=== PATIENT | male | born 1980 | race Caucasian/White ===

== ENCOUNTER 2018-02-28 02:51 | Emergency (ER) | payer OTHER ==
[2018-02-28 03:12] VITALS: BP 126/79; PULSE 100; RESP 16; TEMP 98.6
--- NOTE | 2018-02-28 03:23 | ED ---
Overdose HPI - General Chief Complaint: Overdose Stated Complaint: Overdose Time Seen by Provider: 02/28/18 02:54 Source: patient, EMS Mode of arrival: EMS Limitations: no limitations - History of Present Illness Initial Comments: Is a 37-year-old man who presents to the hospital by ambulance after accidental heroin overdose. The patient states that he had been released from longterm one to 2 weeks ago, and he went to use heroin tonight, and did not realize that he had a lower tolerance than previously. The patient was with a friend who called 911. EMS personnel reported that the patient had a very low respiratory rate, and that they gave oxygen by bag valve mask and then Narcan after which the patient became alert and responsive. The patient denies any complaints here. MD Complaint: accidental overdose -: minutes(s) How Overdose Was Discovered: family/friend present at time Context: Accidental Overdose: wanted to get high - Related Data Previous Rx's Medication Instructions Recorded Ibuprofen [Motrin] 800 mg PO Q8HR PRN #30 tab 07/13/14 Ondansetron Odt [Zofran ODT] 4 mg PO Q8HR PRN #10 tab 07/13/14 Cephalexin [Keflex] 250 mg PO Q6HR 10 Days day 07/20/14 Allergies Allergy/AdvReac Type Severity Reaction Status Date / Time No Known Allergies Allergy Verified 02/28/18 03:06 Review of Systems ROS Statement: Those systems with pertinent positive or pertinent negative responses have been documented in the HPI. ROS Other: All systems not noted in ROS Statement are negative. Constitutional: Denies: fever, chills, weakness Respiratory: Denies: cough, dyspnea Cardiovascular: Denies: chest pain, palpitations, orthopnea Gastrointestinal: Denies: abdominal pain, vomiting, diarrhea Musculoskeletal: Denies: back pain Neurological: Denies: headache, weakness, numbness Psychiatric: Denies: depression, suicidal thoughts Past Medical History Past Medical History: No Reported History History of Any Multi-Drug Resistant Organisms: None Reported Past Surgical History: No Surgical Hx Reported Past Psychological History: No Psychological Hx Reported Smoking Status: Current every day smoker Past Alcohol Use History: None Reported Past Drug Use History: None Reported General Exam Limitations: no limitations General appearance: alert, in no apparent distress Head exam: Present: atraumatic, normocephalic Eye exam: Present: normal appearance, PERRL, EOMI. Absent: scleral icterus, conjunctival injection Respiratory exam: Present: normal lung sounds bilaterally. Absent: respiratory distress, wheezes, rales, rhonchi, stridor Cardiovascular Exam: Present: regular rate, normal rhythm, normal heart sounds. Absent: systolic murmur, diastolic murmur, rubs, gallop GI/Abdominal exam: Present: soft. Absent: tenderness, guarding, rebound, mass Extremities exam: Present: normal inspection, normal capillary refill. Absent: pedal edema, calf tenderness Back exam: Present: normal inspection. Absent: CVA tenderness (R), CVA tenderness (L) Neurological exam: Present: alert Skin exam: Present: warm, dry, intact, normal color. Absent: rash Course Vital Signs 02/28/18 02:59 Temperature 98.6 F Pulse Rate 100 Respiratory 16 Rate Blood Pressure 126/79 O2 Sat by Pulse 92 L Oximetry Medical Decision Making - Medical Decision Making I did have a prolonged discussion with the patient regarding the risk of Narcan wearing off before the heroin that the patient had used. He understands that there is risk of loss consciousness, respiratory arrest, . The patient still does want to sign himself out, but he states that he will be with a friend who can watch over him. Patient will return if there is any difficulty or if he finds himself unsupervised tonight. Discussed cessation. - EKG Data -: EKG Interpreted by Me EKG shows normal: sinus rhythm, axis (Normal), intervals (Normal), QRS complexes (Incomplete right bundle branch block), ST-T waves (Normal) Rate: tachycardia (Rate approximately 108 bpm) Disposition Clinical Impression: Accidental heroin overdose Disposition: Left Against Medical Advice Condition: Fair Instructions: Opioid Overdose (ED) Is patient prescribed a controlled substance at d/c from ED?: No Referrals: None,Stated [Primary Care Provider] - 1-2 days
== END 2018-02-28 03:39 | disposition left against medical advice (07) ==
LOC: EC 02:51
DX: T40.1X1A Poisoning by heroin, accidental (unintentional), initial encounter (principal); F17.200 Nicotine dependence, unspecified, uncomplicated; Z53.29 Procedure and treatment not carried out because of patient's decision for other reasons
CPT/HCPCS: 93005; 99284

== ENCOUNTER 2018-06-14 16:49 | Emergency (ER) | payer OTHER ==
[2018-06-14 17:02] VITALS: TEMP 98.9
--- NOTE | 2018-06-14 17:17 | ED ---
Overdose HPI - General Chief Complaint: Overdose Stated Complaint: Overdose Time Seen by Provider: 06/14/18 17:11 Source: patient, EMS, RN notes reviewed Mode of arrival: EMS Limitations: no limitations - History of Present Illness Initial Comments: 37-year-old male presents emergency Department via EMS for heroin overdose. Patient was found to be in a vehicle an intersection. Drowsy, had pulse and was breathing. Patient was not given any Narcan by EMS. Patient has mild awake and alert at this time. Patient had no physical complaints. Patient states he does inject. Patient is a long-time heroin user. He states he has overdose in the past. - Related Data Home Medications Medication Instructions Recorded Confirmed No Known Home Medications 06/14/18 06/14/18 Allergies Allergy/AdvReac Type Severity Reaction Status Date / Time No Known Allergies Allergy Verified 06/14/18 17:10 Review of Systems ROS Statement: Those systems with pertinent positive or pertinent negative responses have been documented in the HPI. ROS Other: All systems not noted in ROS Statement are negative. Past Medical History Past Medical History: No Reported History History of Any Multi-Drug Resistant Organisms: None Reported Past Surgical History: No Surgical Hx Reported Past Psychological History: No Psychological Hx Reported Smoking Status: Current every day smoker Past Alcohol Use History: Rare Past Drug Use History: Heroin, IV Drug Use, Prescription Drug Abuse General Exam Limitations: no limitations General appearance: alert, in no apparent distress Head exam: Present: atraumatic, normocephalic, normal inspection Eye exam: Present: normal appearance, PERRL, EOMI. Absent: scleral icterus, conjunctival injection, periorbital swelling ENT exam: Present: normal exam, normal oropharynx, mucous membranes moist Neck exam: Present: normal inspection, full ROM. Absent: tenderness, meningismus, lymphadenopathy Respiratory exam: Present: normal lung sounds bilaterally. Absent: respiratory distress, wheezes, rales, rhonchi, stridor Cardiovascular Exam: Present: regular rate, normal rhythm, normal heart sounds. Absent: systolic murmur, diastolic murmur, rubs, gallop, clicks GI/Abdominal exam: Present: soft, normal bowel sounds. Absent: distended, tenderness, guarding, rebound, rigid Back exam: Absent: CVA tenderness (R), CVA tenderness (L) Neurological exam: Present: alert, oriented X3, CN II-XII intact, reflexes normal. Absent: motor sensory deficit Skin exam: Present: warm, dry, intact, normal color. Absent: rash Course Vital Signs 06/14/18 16:50 Temperature 98.9 F Pulse Rate 122 H Respiratory 16 Rate Blood Pressure 133/74 O2 Sat by Pulse 97 Oximetry Medical Decision Making - Medical Decision Making 37-year-old male present emergency Department via EMS for heroin overdose. Patient is awake alert and orientated. Patient did not receive any Narcan by EMS. Patient is not in any respiratory distress. Patient will be discharged to police custody. Disposition Clinical Impression: Heroin overdose Disposition: HOME SELF-CARE Condition: Stable Instructions: Opioid Overdose (ED) Additional Instructions: Please return to the Emergency Department if symptoms worsen or any other concerns. Is patient prescribed a controlled substance at d/c from ED?: No Referrals: None,Stated [Primary Care Provider] - 1-2 days Time of Disposition: 17:24
[2018-06-14 18:03] VITALS: BP 132/59; PULSE 116; RESP 18
== END 2018-06-14 18:01 | disposition home or self-care (01) ==
LOC: EC 16:49
DX: T40.1X1A Poisoning by heroin, accidental (unintentional), initial encounter (principal); F17.200 Nicotine dependence, unspecified, uncomplicated
CPT/HCPCS: 99284

== ENCOUNTER 2020-10-27 14:49 | Emergency (ER) | payer OTHER ==
[2020-10-27 15:02] VITALS: RESP 18
[2020-10-27 15:53] LABS: Basophils % (A) 0 %; Eosinophils # (A) 0.1 k/uL (0-0.7); Eosinophils % (A) 0 %; HCT 41.6 % (39.0-53.0); HGB 14.6 gm/dL (13.0-17.5); Lymphocytes % (A) 7 %; MCH 31.1 pg (25.0-35.0); MCHC 35.1 g/dL (31.0-37.0); MCV 88.8 fL (80.0-100.0); Mean Platelet Volume 6.9; Monocytes # (A) 0.4 k/uL (0-1.0); Monocytes % (A) 3 %; Neutrophils # (A) 12.2 k/uL (1.3-7.7); Neutrophils % (A) 89 %; Platelet Count 248 k/uL (150-450); RBC 4.68 m/uL (4.30-5.90); RDW 13.4 % (11.5-15.5); WBC 13.7 k/uL (3.8-10.6)
[2020-10-27 16:02] LABS: ALT 14 U/L (4-49); AST 19 U/L (17-59); African American GFR (CKD) >90 (>60 ml/min/1.73 sqM); Albumin 4.9 g/dL (3.5-5.0); Alkaline Phosphatase 131 U/L (38-126); Anion Gap 10 mmol/L; Blood Urea Nitrogen 15 mg/dL (9-20); Calcium 10.5 mg/dL (8.4-10.2); Carbon Dioxide 28 mmol/L (22-30); Chloride 103 mmol/L (98-107); Glucose 131 mg/dL (74-99); Non-African American GFR(CKD) >90 (>60 ml/min/1.73 sqM); Sodium 141 mmol/L (137-145); Total Bilirubin 1.5 mg/dL (0.2-1.3); Total Protein 8.4 g/dL (6.3-8.2)
--- NOTE | 2020-10-27 16:18 | ED ---
Abdominal Pain HPI - General Chief Complaint: Abdominal Pain Stated Complaint: Poss Kidney Stone Time Seen by Provider: 10/27/20 16:18 Source: patient Mode of arrival: wheelchair Limitations: no limitations - History of Present Illness Initial Comments: 40-year-old male presenting to the emergency department with a chief complaint abdominal pain. States the pain started yesterday and is located in the right flank region. He does report occasional radiation to the right lower quadrant region. States the pain is sharp in nature and intermittent. States he doesn't think history of kidney stones but his most recent episode was many years ago. Patient reports the pain feels somewhat similar. Denies any nausea vomiting diarrhea. Denies any hematuria, hematochezia or melena. Denies any chest pain shortness of breath. Denies a night sweats or chills. Denies previous abdominal surgeries. - Related Data Previous Rx's Medication Instructions Recorded Cephalexin [Keflex] 500 mg PO Q6HR #40 cap 10/27/20 Ondansetron Odt [Zofran Odt] 4 mg PO Q8HR PRN #20 tab 10/27/20 Tamsulosin [Flomax] 0.4 mg PO DAILY #7 cap 10/27/20 Allergies Allergy/AdvReac Type Severity Reaction Status Date / Time No Known Allergies Allergy Verified 10/27/20 15:01 Review of Systems ROS Statement: Those systems with pertinent positive or pertinent negative responses have been documented in the HPI. ROS Other: All systems not noted in ROS Statement are negative. Past Medical History Past Medical History: No Reported History Additional Past Medical History / Comment(s): kidney stones History of Any Multi-Drug Resistant Organisms: None Reported Past Surgical History: No Surgical Hx Reported Past Psychological History: No Psychological Hx Reported Smoking Status: Current every day smoker Past Alcohol Use History: Rare Past Drug Use History: Heroin, IV Drug Use, Prescription Drug Abuse General Exam Limitations: no limitations General appearance: alert, in no apparent distress Head exam: Present: atraumatic, normocephalic, normal inspection Eye exam: Present: normal appearance, PERRL, EOMI Pupils: Present: normal accommodation ENT exam: Present: normal exam, normal oropharynx, mucous membranes moist, TM's normal bilaterally, normal external ear exam Neck exam: Present: normal inspection, full ROM. Absent: tenderness Respiratory exam: Present: normal lung sounds bilaterally. Absent: respiratory distress, wheezes Cardiovascular Exam: Present: regular rate, normal rhythm, normal heart sounds. Absent: systolic murmur, diastolic murmur GI/Abdominal exam: Present: soft, tenderness (Right-sided abdominal tenderness). Absent: distended, guarding, rebound Extremities exam: Present: normal inspection, full ROM, normal capillary refill. Absent: tenderness, pedal edema, joint swelling Back exam: Present: normal inspection, full ROM, CVA tenderness (R). Absent: te nderness, CVA tenderness (L), muscle spasm, paraspinal tenderness, vertebral tenderness Neurological exam: Present: alert, oriented X3, normal gait Psychiatric exam: Present: normal affect, normal mood Skin exam: Present: warm, dry, intact, normal color Course Vital Signs 10/27/20 10/27/20 14:59 19:34 Temperature 98.6 F 98.5 F Pulse Rate 83 80 Respiratory 18 18 Rate Blood Pressure 129/71 125/75 O2 Sat by Pulse 100 99 Oximetry Medical Decision Making - Medical Decision Making 40-year-old male presenting to emergency Department with a chief complaint of right flank pain. On physical examination, he does have bright CVA tenderness. Genital was well-appearing and did not request any analgesia. He was only given IV fluids. CBC CMP unremarkable. UA reveals elevated red blood cells as well as some white blood cells. Patient was started on antibiotics. CT without contrast of the abdomen and pelvis reveals bilateral renal calculi. There is also an obstructing calculus in the right UVJ causing right-sided hydronephrosis and hydroureter. Strict return parameters were thoroughly discussed patient was understanding and agreeable. She was advised to follow-up with urologist. We'll be discharged with Zofran Tylenol 3 Flomax and Keflex. - Lab Data Result diagrams: 10/27/20 15:45 10/27/20 15:45 Lab Results 10/27/20 10/27/20 10/27/20 Range/Units 15:45 15:45 18:04 WBC 13.7 H (3.8-10.6) k/uL RBC 4.68 (4.30-5.90) m/uL Hgb 14.6 (13.0-17.5) gm/dL Hct 41.6 (39.0-53.0) % MCV 88.8 (80.0-100.0) fL MCH 31.1 (25.0-35.0) pg MCHC 35.1 (31.0-37.0) g/dL RDW 13.4 (11.5-15.5) % Plt Count 248 (150-450) k/uL MPV 6.9 Neutrophils % 89 % Lymphocytes % 7 % Monocytes % 3 % Eosinophils % 0 % Basophils % 0 % Neutrophils # 12.2 H (1.3-7.7) k/uL Lymphocytes # 1.0 (1.0-4.8) k/uL Monocytes # 0.4 (0-1.0) k/uL Eosinophils # 0.1 (0-0.7) k/uL Basophils # 0.0 (0-0.2) k/uL Sodium 141 (137-145) mmol/L Potassium 4.0 (3.5-5.1) mmol/L Chloride 103 (98-107) mmol/L Carbon Dioxide 28 (22-30) mmol/L Anion Gap 10 mmol/L BUN 15 (9-20) mg/dL Creatinine 0.98 (0.66-1.25) mg/dL Est GFR (CKD-EPI)AfAm >90 (>60 ml/min/1.73 sqM) Est GFR (CKD-EPI)NonAf >90 (>60 ml/min/1.73 sqM) Glucose 131 H (74-99) mg/dL Calcium 10.5 H (8.4-10.2) mg/dL Total Bilirubin 1.5 H (0.2-1.3) mg/dL AST 19 (17-59) U/L ALT 14 (4-49) U/L Alkaline Phosphatase 131 H (38-126) U/L Total Protein 8.4 H (6.3-8.2) g/dL Albumin 4.9 (3.5-5.0) g/dL Urine Color Light Red Urine Appearance Cloudy (Clear) Urine pH 6.0 (5.0-8.0) Ur Specific [place] 1.028 (1.001-1.035) Urine Protein 1+ H (Negative) Urine Glucose (UA) Negative (Negative) Urine Ketones Negative (Negative) Urine Blood Large H (Negative) Urine Nitrite Negative (Negative) Urine Bilirubin Negative (Negative) Urine Urobilinogen <2.0 (<2.0) mg/dL Ur Leukocyte Esterase Moderate H (Negative) Urine RBC >182 H (0-5) /hpf Urine WBC 84 H (0-5) /hpf Ur Squamous Epith Cells <1 (0-4) /hpf Hyaline Casts 14 H (0-2) /lpf Urine Mucus Many H (None) /hpf Disposition Clinical Impression: Kidney stone, Hydronephrosis Disposition: HOME SELF-CARE Condition: Stable Instructions (If sedation given, give patient instructions): Kidney Stones (ED) Additional Instructions: Follow-up with urology. Return to emergency department if symptoms worsen. Prescriptions: Tamsulosin [Flomax] 0.4 mg PO DAILY #7 cap Cephalexin [Keflex] 500 mg PO Q6HR #40 cap Ondansetron Odt [Zofran Odt] 4 mg PO Q8HR PRN #20 tab PRN Reason: Nausea Is patient prescribed a controlled substance at d/c from ED?: No Referrals: None,Stated [Primary Care Provider] - 1-2 days Cecilio Hermosillo MD [STAFF PHYSICIAN] - 1-2 days Time of Disposition: 18:40
[2020-10-27] MEDS ORDERED: SODIUM CHLORIDE 0.9% 1,000 ML IV STA (16:33)
--- NOTE | 2020-10-27 17:35 | CT ---
EXAMINATION TYPE: CT abdomen pelvis wo con DATE OF EXAM: 10/27/2020 COMPARISON: 07/13/2014 HISTORY: right flank pain CT DLP: 438.9 mGycm Automated exposure control for dose reduction was used. Images obtained from the diaphragm to the floor the pelvis with no contrast. Lung bases are clear. There is no pleural effusion. Heart size is normal. There is no pericardial eff usion. Liver and spleen appear intact. The bile ducts are not dilated. Gallbladder appears normal. There is no pancreatic mass. Stomach is intact. There is no adrenal mass. Kidneys have normal size. There is right-sided hydronephrosis and hydrouret er. There is 4 mm calculus at the right ureterovesical junction. This may be almost into the urinary bladder. Bladder distends smoothly. There are 2 small calculi in the right kidney that measure up to 3 mm. There is 3 mm calculus posterior left kidney. There is no retroperitoneal adenopathy. There is no mesenteric edema. There is no ascites or free air. There is no bowel obstruction. There i s no inguinal hernia. There is no free fluid in the pelvis. Appendix is medial and appears normal. Th ere is some disc space narrowing at L5-S1. There is L5 spondylolysis and mild first-degree L5-S1 spon dylolisthesis. There is no lumbar compression fracture. Bony pelvis is intact. IMPRESSION: Bilateral renal calculi. Obstructing calculus at the right ureterovesical junction. Right side hydron ephrosis and hydroureter. Normal appendix. L5 spondylolysis with spondylolisthesis unchanged. Renal calculi appear increased co mpared to old exam.
[2020-10-27] MEDS ORDERED: ACET/COD 300 MG/30 MG STARTER PACK 6 TAB BTL PO STA (17:56)
[2020-10-27 18:22] LABS: Appearance,Urine Cloudy (Clear); Bilirubin,Urine Negative (Negative); Blood,Urine Large (Negative); Color,Urine Light Red; Glucose,Urine (UA) Negative (Negative); Hyaline Casts,Urine 14 /lpf (0-2); Ketones,Urine Negative (Negative); Leukocyte Esterase,Urine Moderate (Negative); Mucus,Urine Many /hpf; Nitrite,Urine Negative (Negative); Protein,Urine 1+ (Negative); RBC,Urine >182 /hpf (0-5); Specific Gravity,Urine 1.028 (1.001-1.035); Squamous Epithelial Cell,Urine <1 /hpf (0-4); Urobilinogen,Urine <2.0 mg/dL (<2.0); WBC,Urine 84 /hpf (0-5)
[2020-10-27 19:36] VITALS: BP 125/75; PULSE 80; TEMP 98.5
== END 2020-10-27 19:38 | disposition home or self-care (01) ==
LOC: EC 14:49
DX: N13.2 Hydronephrosis with renal and ureteral calculous obstruction (principal); F17.200 Nicotine dependence, unspecified, uncomplicated
CPT/HCPCS: 36415; 74176; 80053; 81001; 85025; 87086; 99284

== ENCOUNTER 2021-03-12 07:05 | Observation (INO) | payer OTHER ==
[2021-03-12] MEDS ORDERED: ONDANSETRON 4 MG/2 ML VIAL IVP STA (07:17)
[2021-03-12] MEDS ORDERED: NALOXONE 0.4 MG/ML 1 ML VIAL IVP STA ×2 (07:17→08:08)
--- NOTE | 2021-03-12 07:26 | ED ---
General Adult HPI - General Chief complaint: Overdose Stated complaint: Overdose Time Seen by Provider: 03/12/21 07:10 Source: patient, family Mode of arrival: wheelchair Limitations: no limitations - History of Present Illness Initial comments: Dictation was produced using [employer] dictation software. please excuse any grammatical, word or spelling errors. This patient was cared for during a federal and state declared state of emergency secondary to Covid 19 Chief Complaint: 40-year-old male presents to the emergency department for heroin overdose History of Present Illness: Patient is a 40-year-old male he is accompanied to the emergency department by his . She reports that at around 11 PM last night he ingested heroin. He states that it was a powder form. She did not witness the ingestion. Patient was allegedly with his friend. He was noted to be apneic at some point according to who was told about his condition from patient's friend. Patient is a poor historian. reports that patient is a regular heroin user. He typically injects heroin however last night he ingested it. He does not have medical problems. He is a regular cigarette smoker. He takes no daily medications. The ROS documented in this emergency department record has been reviewed and confirmed by me. Those systems with pertinent positive or negative responses have been documented in the HPI. All other systems are other negative and/or noncontributory. PHYSICAL EXAM: General Impression: Somnolent HEENT: Normocephalic atraumatic, extra-ocular movements intact, pinpoint pupils, mucous membranes moist. Cardiovascular: Heart regular rate and rhythm Chest: Slow speech, no retractions, no tachypnea, slow breathing Abdomen: abdomen soft, non-tender, non-distended, no organomegaly Musculoskeletal: Pulses present and equal in all extremities, no peripheral edema Motor: no focal deficits noted Neurological: CN II-XII grossly intact, no focal motor or sensory deficits noted Skin: Intact with no visualized rashes ED course: 40-year-old male presents with for concerns of heroin overdose. Vital signs upon arrival shows findings within acceptable limits. Laboratory evaluation obtained. CBC [place]. Venous pH is 7.54 with pCO2 of 27 and a bicarb of 23. Metabolic panel is unremarkable. No sign of anion gap a cidosis. Tox labs are negative. Urine drug screen is positive for opiates, amphetamines incidental as beans and cocaine. Clinical presentation is likely secondary to benzodiazepine overdose. He is maintaining his airway and not showing signs of respiratory distress. Vital signs are normal. Patient be admitted for benzodiazepine toxicity. Patient be admitted to [facility]. EKG interpretation: Ventricular rate 77, normal sinus rhythm,. 144, QRS 94, QTC 463. No [place] prolongation, no QTC prolongation, no ST or T-wave changes noted. EKG compared to 02/28/2018 showing no changes. Overall, this EKG is unremarkable - Related Data Home Medications Medication Instructions Recorded Confirmed No Known Home Medications 03/12/21 03/12/21 Allergies Allergy/AdvReac Type Severity Reaction Status Date / Time No Known Allergies Allergy Verified 03/12/21 08:21 Review of Systems ROS Statement: Those systems with pertinent positive or pertinent negative responses have been documented in the HPI. ROS Other: All systems not noted in ROS Statement are negative. Past Medical History Past Medical History: No Reported History Additional Past Medical History / Comment(s): kidney stones History of Any Multi-Drug Resistant Organisms: None Reported Past Surgical History: No Surgical Hx Reported Past Psychological History: No Psychological Hx Reported Smoking Status: Current every day smoker Past Alcohol Use History: Rare Past Drug Use History: Heroin, IV Drug Use, Prescription Drug Abuse General Exam Limitations: no limitations Course Vital Signs 03/12/21 03/12/21 03/12/21 07:11 07:15 07:21 Temperature 97.5 F L Pulse Rate 80 90 Respiratory 18 10 L 18 Rate Blood Pressure 116/78 125/92 O2 Sat by Pulse 98 97 Oximetry 03/12/21 03/12/21 03/12/21 07:42 08:17 08:18 Temperature Pulse Rate 80 82 Respiratory 16 12 12 Rate Blood Pressure 116/75 107/73 O2 Sat by Pulse 96 97 Oximetry 03/12/21 09:00 Temperature Pulse Rate 80 Respiratory 16 Rate Blood Pressure 122/86 O2 Sat by Pulse 98 Oximetry Medical Decision Making - Lab Data Result diagrams: 03/12/21 07:26 03/12/21 07:26 Lab Results 03/12/21 03/12/21 03/12/21 Range/Units 07:26 07:26 07:26 WBC 5.5 (3.8-10.6) k/uL RBC 4.16 L (4.30-5.90) m/uL Hgb 12.8 L (13.0-17.5) gm/dL Hct 37.1 L (39.0-53.0) % MCV 89.3 (80.0-100.0) fL MCH 30.9 (25.0-35.0) pg MCHC 34.6 (31.0-37.0) g/dL RDW 12.8 (11.5-15.5) % Plt Count 227 (150-450) k/uL MPV 6.9 Neutrophils % 58 % Lymphocytes % 33 % Monocytes % 6 % Eosinophils % 1 % Basophils % 1 % Neutrophils # 3.2 (1.3-7.7) k/uL Lymphocytes # 1.8 (1.0-4.8) k/uL Monocytes # 0.3 (0-1.0) k/uL Eosinophils # 0.1 (0-0.7) k/uL Basophils # 0.0 (0-0.2) k/uL VBG pH 7.54 H (7.31-7.41) VBG pCO2 27 L (37-51) mmHg VBG HCO3 23 L (24-28) mmol/L Sodium 143 (137-145) mmol/L Potassium 4.5 (3.5-5.1) mmol/L Chloride 106 (98-107) mmol/L Carbon Dioxide 29 (22-30) mmol/L Anion Gap 8 mmol/L BUN 10 (9-20) mg/dL Creatinine 0.81 (0.66-1.25) mg/dL Est GFR (CKD-EPI)AfAm >90 (>60 ml/min/1.73 sqM) Est GFR (CKD-EPI)NonAf >90 (>60 ml/min/1.73 sqM) Glucose 97 (74-99) mg/dL Calcium 9.6 (8.4-10.2) mg/dL Salicylates mg/dL Urine Opiates Screen (NotDetected) Ur Oxycodone Screen (NotDetected) Urine Methadone Screen (NotDetected) Ur Propoxyphene Screen (NotDetected) Acetaminophen ug/mL Ur Barbiturates Screen (NotDetected) U Tricyclic Antidepress (NotDetected) Ur Phencyclidine Scrn (NotDetected) Ur Amphetamines Screen (NotDetected) U Methamphetamines Scrn (NotDetected) U Benzodiazepines Scrn (NotDetected) Urine Cocaine Screen (NotDetected) U Marijuana (THC) Screen (NotDetected) Serum Alcohol mg/dL 03/12/21 03/12/21 03/12/21 Range/Units 07:55 07:58 08:14 WBC (3.8-10.6) k/uL RBC (4.30-5.90) m/uL Hgb (13.0-17.5) gm/dL Hct (39.0-53.0) % MCV (80.0-100.0) fL MCH (25.0-35.0) pg MCHC (31.0-37.0) g/dL RDW (11.5-15.5) % Plt Count (150-450) k/uL MPV Neutrophils % % Lymphocytes % % Monocytes % % Eosinophils % % Basophils % % Neutrophils # (1.3-7.7) k/uL Lymphocytes # (1.0-4.8) k/uL Monocytes # (0-1.0) k/uL Eosinophils # (0-0.7) k/uL Basophils # (0-0.2) k/uL VBG pH (7.31-7.41) VBG pCO2 (37-51) mmHg VBG HCO3 (24-28) mmol/L Sodium (137-145) mmol/L Potassium (3.5-5.1) mmol/L Chloride (98-107) mmol/L Carbon Dioxide (22-30) mmol/L Anion Gap mmol/L BUN (9-20) mg/dL Creatinine (0.66-1.25) mg/dL Est GFR (CKD-EPI)AfAm (>60 ml/min/1.73 sqM) Est GFR (CKD-EPI)NonAf (>60 ml/min/1.73 sqM) Glucose (74-99) mg/dL Calcium (8.4-10.2) mg/dL Salicylates <1.0 mg/dL Urine Opiates Screen Detected H (NotDetected) Ur Oxycodone Screen Not Detected (NotDetected) Urine Methadone Screen Not Detected (NotDetected) Ur Propoxyphene Screen Not Detected (NotDetected) Acetaminophen <10.0 ug/mL Ur Barbiturates Screen Not Detected (NotDetected) U Tricyclic Antidepress Not Detected (NotDetected) Ur Phencyclidine Scrn Not Detected (NotDetected) Ur Amphetamines Screen Detected H (NotDetected) U Methamphetamines Scrn Detected H (NotDetected) U Benzodiazepines Scrn Detected H (NotDetected) Urine Cocaine Screen Detected H (NotDetected) U Marijuana (THC) Screen Not Detected (NotDetected) Serum Alcohol <10 mg/dL Disposition Clinical Impression: Overdose Disposition: ADMITTED IP TO THIS [facility] Condition: Fair Referrals: None,Stated [Primary Care Provider] - 1-2 days
[2021-03-12 07:47] LABS: Basophils % (A) 1 %; Eosinophils # (A) 0.1 k/uL (0-0.7); Eosinophils % (A) 1 %; HCT 37.1 % (39.0-53.0); HGB 12.8 gm/dL (13.0-17.5); Lymphocytes # (A) 1.8 k/uL (1.0-4.8); Lymphocytes % (A) 33 %; MCH 30.9 pg (25.0-35.0); MCHC 34.6 g/dL (31.0-37.0); MCV 89.3 fL (80.0-100.0); Mean Platelet Volume 6.9; Monocytes # (A) 0.3 k/uL (0-1.0); Monocytes % (A) 6 %; Neutrophils # (A) 3.2 k/uL (1.3-7.7); Neutrophils % (A) 58 %; Platelet Count 227 k/uL (150-450); RBC 4.16 m/uL (4.30-5.90); RDW 12.8 % (11.5-15.5); WBC 5.5 k/uL (3.8-10.6)
[2021-03-12 08:01] LABS: African American GFR (CKD) >90 (>60 ml/min/1.73 sqM); Anion Gap 8 mmol/L; Blood Urea Nitrogen 10 mg/dL (9-20); Calcium 9.6 mg/dL (8.4-10.2); Carbon Dioxide 29 mmol/L (22-30); Chloride 106 mmol/L (98-107); Glucose 97 mg/dL (74-99); Non-African American GFR(CKD) >90 (>60 ml/min/1.73 sqM); Potassium 4.5 mmol/L (3.5-5.1); Sodium 143 mmol/L (137-145)
[2021-03-12 08:10] LABS: VBG PH 7.54 (7.31-7.41)
--- NOTE | 2021-03-12 08:12 | CT ---
There is a linear EXAMINATION TYPE: CT brain wo con DATE OF EXAM: 03/12/2021 COMPARISON: None HISTORY: Overdose CT DLP: 1129.[address] of the brain was performed. The ventricles, basal cisterns and sulci overlying the cerebral convexities demonstrate a normal appe arance. There is no evidence for intracranial hemorrhage or sulcal effacement. No mass effects are seen. Osseous calvarium is intact. If symptoms persist consider MRI as clinically warranted. IMPRESSION: 1. No acute intracranial process is seen at this time.
[2021-03-12 08:19] LABS: Acetaminophen <10.0 ug/mL; Salicylate <1.0 mg/dL
--- NOTE | 2021-03-12 08:25 | XR ---
EXAMINATION TYPE: XR chest 1V portable DATE OF EXAM: 03/12/2021 COMPARISON: NONE HISTORY: 40-year-old male with heroin overdose TECHNIQUE: Single frontal view of the chest is obtained. FINDINGS: Low lung volumes. Overlying leads. Heart size is within normal limits. No mediastinal shif t. No focal consolidation, pneumothorax or pleural effusion. IMPRESSION: 1. No acute pulmonary disease. Low lung volumes.
[2021-03-12 09:14] LABS: Amphetamine Screen,Urine Detected (NotDetected); Barbiturate Screen,Urine Not Detected (NotDetected); Benzodiazepines Screen,Urine Detected (NotDetected); Cocaine Screen,Urine Detected (NotDetected); Methadone Screen, Urine Not Detected (NotDetected); Opiate Screen,Urine Detected (NotDetected); Oxycodone Screen, Urine Not Detected (NotDetected); Phencyclidine Screen,Urine Not Detected (NotDetected); Tricyclic Antidepressant,Urine Not Detected (NotDetected); Urn Cannabinoid Scrn Not Detected (NotDetected)
[2021-03-12] MEDS: SODIUM CHLORIDE 0.9% 1,000 ML IV SCH ×2 (09:54→16:50)
[2021-03-12 11:31] LABS: Glucose,Whole Blood 115 mg/dL (75-99)
[2021-03-12] MEDS: NALOXONE 0.4 MG/ML 1 ML VIAL IV PRN ×3 (12:29→13:59)
--- NOTE | 2021-03-12 14:35 | P.HPIM ---
History of Present Illness 40-year-old male was brought in because patient apparently ingested cocaine although his drug screen is positive for multiple drugs including cocaine, as per the is patient initially probably overdosed on heroin and then used co fabian. Patient will inject heroin never was tested for hepatitis. Unable to obtain any history. Patient the pupils are mid dilated patient received a flu doses of Marcaine. Patient is still drowsy sleepy. Review of Systems Unable to obtain due to his clinical condition Past Medical History Past Medical History: No Reported History Additional Past Medical History / Comment(s): Pt passed kidney stones History of Any Multi-Drug Resistant Organisms: None Reported Past Surgical History: No Surgical Hx Reported Past Anesthesia/Blood Transfusion Reactions: Unable to Obtain Additional Past Anesthesia/Blood Transfusion Reaction / Comment(s): Pt has never had surgery. Smoking Status: Current every day smoker - Past Family History Father Family Medical History: Hypertension Mother Family Medical History: No Reported History Additional Family Medical History / Comment(s): Mother is healthy Medications and Allergies Home Medications Medication Instructions Recorded Confirmed Type No Known Home Medications 03/12/21 03/12/21 History Allergies Allergy/AdvReac Type Severity Reaction Status Date / Time No Known Allergies Allergy Verified 03/12/21 08:21 Physical Exam Vitals: Vital Signs Temp Pulse Resp BP Pulse Ox 03/12/21 14:02 97.7 F 85 13 113/67 96 03/12/21 13:59 8 L 03/12/21 13:19 12 03/12/21 13:14 8 L 03/12/21 13:13 96 8 L 117/71 95 03/12/21 12:34 95 14 98 03/12/21 12:29 9 L 03/12/21 12:19 95 10 L 133/101 95 03/12/21 11:23 97.9 F 92 24 145/88 94 L 03/12/21 09:33 85 16 114/75 98 03/12/21 09:00 80 16 122/86 98 03/12/21 08:18 82 12 107/73 97 03/12/21 08:17 12 03/12/21 07:42 80 16 116/75 96 03/12/21 07:21 90 18 125/92 97 03/12/21 07:15 10 L 03/12/21 07:11 97.5 F L 80 18 116/78 98 Intake and Output 03/11/21 03/12/21 03/12/21 22:59 06:59 14:59 Output Total 250 Balance -250 Output: Urine 250 Straight 250 Other: Weight 65.771 kg PHYSICAL EXAMINATION: GENERAL: Somnolent arousable with verbal stimuli HEENT: Pupils are round and equally reacting to light. EOMI. No scleral icterus. No conjunctival pallor. Normocephalic, atraumatic. No pharyngeal erythema. No thyromegaly. CARDIOVASCULAR: S1 and S2 present. No murmurs, rubs, or gallops. PULMONARY: Chest is clear to auscultation, no wheezing or crackles. ABDOMEN: Soft, nontender, nondistended, normoactive bowel sounds. No palpable organomegaly. MUSCULOSKELETAL: No joint swelling or deformity. EXTREMITIES: No cyanosis, clubbing, or pedal edema. NEUROLOGICAL: Drowsy SKIN: No rashes. Results CBC & Chem 7: 03/12/21 07:26 03/12/21 07:26 Labs: Abnormal Lab Results - Last 24 Hours (Table) 03/12/21 03/12/21 03/12/21 Range/Units 07:26 07:26 08:14 RBC 4.16 L (4.30-5.90) m/uL Hgb 12.8 L (13.0-17.5) gm/dL Hct 37.1 L (39.0-53.0) % VBG pH 7.54 H (7.31-7.41) VBG pCO2 27 L (37-51) mmHg VBG HCO3 23 L (24-28) mmol/L POC Glucose (mg/dL) (75-99) mg/dL Urine Opiates Screen Detected H (NotDetected) Ur Amphetamines Screen Detected H (NotDetected) U Methamphetamines Scrn Detected H (NotDetected) U Benzodiazepines Scrn Detected H (NotDetected) Urine Cocaine Screen Detected H (NotDetected) 03/12/21 Range/Units 11:30 RBC (4.30-5.90) m/uL Hgb (13.0-17.5) gm/dL Hct (39.0-53.0) % VBG pH (7.31-7.41) VBG pCO2 (37-51) mmHg VBG HCO3 (24-28) mmol/L POC Glucose (mg/dL) 115 H (75-99) mg/dL Urine Opiates Screen (NotDetected) Ur Amphetamines Screen (NotDetected) U Methamphetamines Scrn (NotDetected) U Benzodiazepines Scrn (NotDetected) Urine Cocaine Screen (NotDetected) Thrombosis Risk Factor Assmnt - Choose All That Apply Any of the Below Risk Factors Present?: Yes Each Factor Represents 1 point: Medical pt on bed rest Other Risk Factors: Yes Each Risk Factor Represents 2 Points: Patient confined to bed Other congenital or acquired thrombophilia - If yes, enter type in comment: No Thrombosis Risk Factor Assessment Total Risk Factor Score: 3 Thrombosis Risk Factor Assessment Level: Moderate Risk Assessment and Plan Plan: -Overdose on heroine along with the cocaine and amphetamines. Patient will be monitored after second dose of Narcane if he doesn't improve patient patient probably will be started on Narcan drip and will be transferred to ICU for close monitoring. And has an unintentional overdose as per the patient is not suicidal or homicidal. -History of IV drug use: Will obtain hepatitis B -Altered mental status, toxic encephalopathy secondary to drug overdose -Nicotine use -DVT prophylaxis with Lovenox
[2021-03-12] MEDS ORDERED: NICOTINE 21MG/24HR PATCH TRANSDERM SCH (21:30)
[2021-03-13 02:28] VITALS: RESP 18
[2021-03-13 04:05] VITALS: BP 154/90; PULSE 95; TEMP 98.5
[2021-03-13] MEDS ORDERED: ENOXAPARIN 40 MG/0.4 ML SYRINGE SQ SCH (09:00)
--- NOTE | 2021-03-17 15:05 | P.DS ---
Providers Date of admission: 03/12/21 09:34 Expected date of discharge: 03/12/21 Attending physician: Jess Fox Primary care physician: Stated None Hospital Course: Patient left AGAINST MEDICAL ADVICE. Patient Condition at Discharge: Fair Plan - Discharge Summary Discharge Rx Participant: No New Discharge Prescriptions: No Action No Known Home Medications Discharge Medication List No Known Home Medications 03/12/21 [History] Follow up Appointment(s)/Referral(s): None,Stated [Primary Care Provider] - 1-2 days Discharge Disposition: Left Against Medical Advice
== END 2021-03-13 04:06 | disposition left against medical advice (07) ==
LOC: EC 07:05 → 6NMEDSUR 09:34
PROVIDERS: ADMIT Hospitalist; ATTEND Hospitalist
DX: T40.1X1A Poisoning by heroin, accidental (unintentional), initial encounter (principal); T42.4X1A Poisoning by benzodiazepines, accidental (unintentional), initial encounter; G92 Toxic encephalopathy; F11.90 Opioid use, unspecified, uncomplicated; F17.210 Nicotine dependence, cigarettes, uncomplicated; Z20.822 Contact with and (suspected) exposure to COVID-19; Z87.442 Personal history of urinary calculi; Z82.49 Family history of ischemic heart disease and other diseases of the circulatory system
CPT/HCPCS: 96376; 96361; 96374; 96375; 99285; 36415; 93005; 80048; 82803; 85025; 80306; 80143; 80320; 87635; 80179; 71045; 70450; G0378 ×2; S4990; J2310; J2405

== ENCOUNTER 2021-03-16 16:08 | Emergency (ER) | payer OTHER ==
[2021-03-16 16:15] VITALS: TEMP 98.7
[2021-03-16 16:44] VITALS: RESP 16
[2021-03-16 17:20] VITALS: BP 104/60
--- NOTE | 2021-03-16 17:25 | ED ---
General Adult HPI - General Chief complaint: Overdose Stated complaint: accidental overdose Time Seen by Provider: 03/16/21 16:08 Source: patient, EMS, RN notes reviewed, old records reviewed Mode of arrival: EMS Limitations: no limitations - History of Present Illness Initial comments: This is a 40-year-old male who presents to the emergency department stating that he took too much heroin today. EMS was called because he was unresponsive when someone found him in they did a couple compressions on his chest however when EMS got there he was talking to him an alert and oriented times recently did not give him any Narcan. When patient arrived to the emergency department he had no symptoms whatsoever. Patient patient denies headache patient denies numbness weakness. Patient denies any difficulty breathing shortness breath or chest pain. Patient denies nausea vomiting diarrhea. - Related Data Home Medications Medication Instructions Recorded Confirmed No Known Home Medications 03/12/21 03/16/21 Allergies Allergy/AdvReac Type Severity Reaction Status Date / Time No Known Allergies Allergy Verified 03/16/21 16:55 Review of Systems ROS Statement: Those systems with pertinent positive or pertinent negative responses have been documented in the HPI. ROS Other: All systems not noted in ROS Statement are negative. Past Medical History Past Medical History: No Reported History Additional Past Medical History / Comment(s): Pt passed kidney stones History of Any Multi-Drug Resistant Organisms: None Reported Past Surgical History: No Surgical Hx Reported Past Anesthesia/Blood Transfusion Reactions: Unable to Obtain Additional Past Anesthesia/Blood Transfusion Reaction / Comment(s): Pt has never had surgery. Past Psychological History: No Psychological Hx Reported Smoking Status: Current every day smoker Past Drug Use History: Heroin - Past Family History Father Family Medical History: Hypertension Mother Family Medical History: No Reported History Additional Family Medical History / Comment(s): Mother is healthy General Exam - General Exam Comments Initial Comments: GENERAL: Patient is well-developed and well-nourished. Patient is nontoxic and well- hydrated and is in no acute distress. ENT: Neck is soft and supple. No significant lymphadenopathy is noted. Oropharynx is clear. Moist mucous membranes. Neck has full range of motion without eliciting any pain. EYES: The sclera were anicteric and conjunctiva were pink and moist. Extraocular movements were intact and pupils were equal round and reactive to light. Eyelids were unremarkable. PULMONARY: Unlabored respirations. Good breath sounds bilaterally. No audible rales rhonchi or wheezing was noted. CARDIOVASCULAR: There is a regular rate and rhythm without any murmurs gallops or rubs. ABDOMEN: Soft and nontender with normal bowel sounds. SKIN: Skin is clear with no lesions or rashes and otherwise unremarkable. NEUROLOGIC: Patient is alert and oriented x3. Cranial nerves II through XII are grossly intact. Motor and sensory are also intact. Normal speech, volume and content. Symmetrical smile. MUSCULOSKELETAL: Normal extremities with adequate strength and full range of motion. No lower extremity swelling or edema. No calf tenderness. LYMPHATICS: No significant lymphadenopathy is noted PSYCHIATRIC: Normal psychiatric evaluation. Limitations: no limitations Course Vital Signs 03/16/21 03/16/21 03/16/21 16:10 16:43 17:15 Temperature 98.7 F Pulse Rate 122 H 101 H 80 Respiratory 18 16 16 Rate Blood Pressure 141/75 128/54 104/60 O2 Sat by Pulse 97 95 97 Oximetry Medical Decision Making - Medical Decision Making I went back into review evaluate the patient continued to be asymptomatic and wanted to discharge. Disposition Clinical Impression: Heroin overdose Disposition: HOME SELF-CARE Condition: Good Instructions (If sedation given, give patient instructions): Adult Overdose ( ED), Opioid Use Disorder (ED) Is patient prescribed a controlled substance at d/c from ED?: No Referrals: None,Stated [Primary Care Provider] - 1-2 days Time of Disposition: 17:24
[2021-03-16 17:36] VITALS: PULSE 70
== END 2021-03-16 17:38 | disposition home or self-care (01) ==
LOC: EC 16:08
DX: T40.1X1A Poisoning by heroin, accidental (unintentional), initial encounter (principal); F17.200 Nicotine dependence, unspecified, uncomplicated; Z87.442 Personal history of urinary calculi
CPT/HCPCS: 99285

== ENCOUNTER 2021-04-07 | Emergency (ER) | payer OTHER ==
--- NOTE | 2021-04-07 20:44 | ED ---
General Adult HPI - General Chief complaint: Overdose Stated complaint: Overdose Time Seen by Provider: 04/07/21 20:18 Source: EMS Mode of arrival: EMS Limitations: no limitations - History of Present Illness Initial comments: Dictation was produced using [employer] dictation software. please excuse any grammatical, word or spelling errors. Chief Complaint: 40-year-old male presents emergency department for heroin overdose History of Present Illness: Ms. dejesus 40-year-old male presents to the emergency department for heroin dose. He is brought in by EMS after being found on the ground altered mental status. Patient was given Narcan that he woke up. Patient states that he used heroin. He injects. He is trying to taper his doses in order to quit. Patient has no complaints at this time. The ROS documented in this emergency department record has been reviewed and confirmed by me. Those systems with pertinent positive or negative responses have been documented in the HPI. All other systems are other negative and/or noncontributory. PHYSICAL EXAM: General Impression: Alert and oriented x3, not in acute distress HEENT: Normocephalic atraumatic, extra-ocular movements intact, pupils equal and reactive to light bilaterally, mucous membranes moist. Cardiovascular: Heart regular rate and rhythm Chest: Able to complete full sentences, no retractions, no tachypnea Abdomen: abdomen soft, non-tender, non-distended, no organomegaly Musculoskeletal: Pulses present and equal in all extremities, no peripheral edema Motor: no focal deficits noted Neurological: CN II-XII grossly intact, no focal motor or sensory deficits noted Skin: Intact with no visualized rashes Psych: Normal affect and mood ED course: 40 yo Male presents after heroin overdose. He was given Narcan proximal one hour prior to arrival. Upon arrival are within acceptable limits. Physical examination benign. Patient feels well and has no complaints. Patient requests to be discharged. It is recommended to him to be observed in emergency department until at least 2 hours after the Narcan was administered. He does not want to stay and would prefer to be discharge. He is not suicidal homicidal or showing any signs of psychosis. He has his at the bedside. He reports that he has Narcan at home. has medical background and can provide patient Narcan at home should he become more somnolent or showing any signs of decreased respiratory drive. Patient understands the risks of being discharged prematurely. - Related Data Home Medications Medication Instructions Recorded Confirmed No Known Home Medications 03/12/21 03/16/21 Allergies Allergy/AdvReac Type Severity Reaction Status Date / Time No Known Allergies Allergy Verified 04/07/21 20:34 Review of Systems ROS Statement: Those systems with pertinent positive or pertinent negative responses have been documented in the HPI. ROS Other: All systems not noted in ROS Statement are negative. Past Medical History Past Medical History: No Reported History Additional Past Medical History / Comment(s): Pt passed kidney stones History of Any Multi-Drug Resistant Organisms: None Reported Past Surgical History: No Surgical Hx Reported Past Anesthesia/Blood Transfusion Reactions: Unable to Obtain Additional Past Anesthesia/Blood Transfusion Reaction / Comment(s): Pt has never had surgery. Past Psychological History: No Psychological Hx Reported Smoking Status: Current every day smoker Past Drug Use History: Heroin - Past Family History Father Family Medical History: Hypertension Mother Family Medical History: No Reported History Additional Family Medical History / Comment(s): Mother is healthy General Exam Limitations: no limitations Course Vital Signs 04/07/21 20:30 Temperature 98 F Pulse Rate 87 Respiratory 18 Rate Blood Pressure 115/77 O2 Sat by Pulse 99 Oximetry Disposition Clinical Impression: Heroin overdose Disposition: HOME SELF-CARE Condition: Fair Instructions (If sedation given, give patient instructions): Adult Overdose (ED) Additional Instructions: You're discharged under the care of her . Report that he have Narcan at home. He becomes somnolent or sleepy and showing signs of decreased respiratory rate please administer Narcan. Is patient prescribed a controlled substance at d/c from ED?: No Referrals: None,Stated [Primary Care Provider] - 1-2 days
== END 2021-04-07 21:22 | disposition home or self-care (01) ==
CPT/HCPCS: 99284